=== PATIENT | male | born 1980 | race Asian ===

== ENCOUNTER 2016-11-22 09:12 | Emergency (ER) | payer OTHER ==
[~2016-11-22] VITALS: Ht 177.8 cm; Wt 84.0 kg
[2016-11-22 09:13] VITALS: BP 110/80
[2016-11-22] MEDS ORDERED: IBUPROFEN 200 MG TABLET PO ONE (10:00)
== END 2016-11-22 10:26 | disposition home or self-care (01) ==
LOC: ED 10:20
DX: J02.9 Acute pharyngitis, unspecified (principal); L03.211 Cellulitis of face; H66.003 Acute suppurative otitis media without spontaneous rupture of ear drum, bilateral
CPT/HCPCS: 99283